=== PATIENT | female | born 1965 | race Caucasian/White ===

== ENCOUNTER 2017-07-23 13:29 | Day surgery (SDC) | payer OTHER ==
[2017-07-23] MEDS ORDERED: LIDOCAINE 2% (SDV) 5 ML INJ (15:12)
[2017-07-23] MEDS ORDERED: PROPOFOL 60 ML (15:12)
== END 2017-07-23 16:26 | disposition home or self-care (01) ==
LOC: GIL 13:29
DX: Z12.11 Encounter for screening for malignant neoplasm of colon (principal); D12.5 Benign neoplasm of sigmoid colon; K64.8 Other hemorrhoids; E66.9 Obesity, unspecified; Z68.36 Body mass index [BMI] 36.0-36.9, adult
CPT/HCPCS: 45380; 88305